=== PATIENT | female | born 1965 | race Caucasian/White ===

== ENCOUNTER 2021-12-28 07:14 | Outpatient (CLI) | payer BC ==
[~2021-12-28] VITALS: Ht 167.6 cm; Wt 58.1 kg
[2021-12-28] MEDS ORDERED: CHOL1LIQ MC (11:08)
[2021-12-28] MEDS ORDERED: MULT-1136 PO (11:08)
[2021-12-28] MEDS ORDERED: TUME1CAP PO (11:08)
[2021-12-28] MEDS ORDERED: [UNRECOGNIZED DRUG - CODE] MC (11:08)
== END 2021-12-28 11:11 | disposition home or self-care (01) ==
LOC: PREOP 07:14
PROVIDERS: ATTEND Internal Medicine
DX: Z01.818 Encounter for other preprocedural examination (principal)

== ENCOUNTER 2022-01-06 07:57 | Day surgery (SDC) | payer BC ==
--- NOTE | 2021-12-27 20:15 | HISTORY AND PHYSICAL ---
DATE OF SERVICE: PANENDOSCOPY HISTORY AND PHYSICAL HISTORY OF PRESENT ILLNESS: The patient is a 56-year-old white female referred by Bennett Wood APRN for consideration for panendoscopy. The patient was due for screening colonoscopy. She is deemed to be of average risk as she is not aware of any family history for colon cancer. For the past several years, she reports intermittent crampy abdominal pain typically followed by diarrhea. She thinks that occasionally she may have had a small amount of red blood, but not often. She believes certain foods like dairy, nuts, soda and alcohol make her abdominal pain worse, but can happen at any time. It is not associated with chills or fever. She reports that she has been doing a lot of throat clearing. She has had some intermittent dysphagia to solids including pills over the past several months. She denies associated weight loss or melena. She has had some intermittent chest discomfort, but is not activity associated more often at rest, and more often at night. She denies any associated epigastric pain or burning. PAST MEDICAL HISTORY: Distant past history of head trauma. She was recently started on Protonix and Carafate. I do not believe she is taking any other prescription medication. 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 Occasional small volume alcohol intake. No past smoking history. PAST SURGICAL HISTORY: Significant for tonsillectomy and adenoidectomy and a D and C. FAMILY HISTORY: She is aware of no family history of GI tract malignancy. REVIEW OF SYSTEMS: CONSTITUTIONAL: Denies night sweats, chills, fever or change in weight. GASTROINTESTINAL: As noted in the HPI. PULMONARY: Denies cough, wheezing or shortness of breath. CARDIOVASCULAR: Does report chest pain; however, it is not activity associated and not associated with diaphoresis or shortness of breath. She has had no syncope or presyncope. PHYSICAL EXAMINATION: GENERAL: Reveals a pleasant white female with a slight speech impediment. VITAL SIGNS: Blood pressure 120/72, weight 128.8 pounds. HEENT: Unremarkable. Sclerae nonicteric. CHEST: Clear to auscultation. CARDIOVASCULAR: Reveals a regular rate and rhythm without murmur, S3 or S4. ABDOMEN: Soft, supple, currently without pain. No mass or organomegaly are noted. EXTREMITIES: Reveal no cyanosis, clubbing or edema. ASSESSMENT AND PLAN: The patient is being set up for screening colonoscopy and diagnostic EGD due to history of dysphagia as well as likely noncardiac chest pain. Prep instructions were given and questions were answered. I thank you for the referral of this pleasant lady. Job ID: [id number] DocumentID: [id number] Dictated Date: 12/22/2021 16:47:00 Oracle Sql Developer Date: 12/22/2021 17:06:39 Dictated By: JOE PRICE MD
[~2022-01-06] VITALS: Ht 168 cm; Wt 58.1 kg
[~2022-01-06 07:57] MED LIST: CHOL1LIQ MC; MULT-1136 PO; TUME1CAP PO; [UNRECOGNIZED DRUG - CODE] MC
[2022-01-06] MEDS ORDERED: LACTATED RINGERS 1,000 ML IV STA (08:06)
--- NOTE | 2022-01-06 08:12 | Pre-Op Note & Conscious Sedat ---
Pre-Operative Progress Note H&P Reviewed The H&P was reviewed, patient examined and no changes noted. Date H&P Reviewed: Jan 06, 2022 Time H&P Reviewed: 08:12 Conscious Sedation Pre-Proced ASA Score 1 For ASA 3 and 4: Consider anesthesia and medical clearance. Also, for patients with a history of failed moderate sedation consider anesthesia. Airway Lungs Heart ASA score ASA 1: a normal healthy patient ASA 2: a patient with a mild systemic disease (mid diabetes, controlled hypertension, obesity ASA 3: a patient with a severe systemic disease that limits activity (angina, COPD, prior Myocardial infarction) ASA 4: a patient with an incapacitating disease that is a constant threat to life (CHF, renal failure) ASA 5: a moribund patient not expected to survive 24 hrs. (ruptured aneurysm) ASA 6: a declared brain- patient whose organs are being harvested. For emergent operations, add the letter E after the classification Mallampati Classification Grade 1 Sedation Plan Analgesia, Amnesia, Plan communicated to team members, Discussed options with patient/fam, Discussed risks with patient/fam The patient is an appropriate candidate to undergo the planned procedure, sedation, and anesthesia. The patient immediately re-assessed prior to indication. JOE PRICE MD Jan 06, 2022 08:12
[2022-01-06] MEDS ORDERED: HURRICAINE EXT TUBE (BENZOCAINE) XX PRN (08:15)
[2022-01-06 08:23] VITALS: BP 132/86
[2022-01-06] MEDS ORDERED: PROPOFOL INJECTION 50 ML IV ONE (09:10)
[2022-01-06] MEDS ORDERED: MIDAZOLAM 2 MG/2 ML (VERSED) VIAL ONE (09:10)
[2022-01-06 09:50] VITALS: BP 96/58
[2022-01-06 09:55] VITALS: BP 97/58
[2022-01-06 10:00] VITALS: BP 102/65
[2022-01-06 10:30] VITALS: BP 132/80
--- NOTE | 2022-01-06 10:36 | Anesthesia-General Post-Op ---
MAC Patient Condition Mental Status/LOC: Same as Preop Cardiovascular: Satisfactory Nausea/Vomiting: Absent Respiratory: Satisfactory Pain: Controlled Complications: Absent Post Op Complications Complications None Follow Up Care/Instructions Patient Instructions None needed. Anesthesiology Discharge Order Discharge Order Patient is doing well, no complaints, stable vital signs, no apparent adverse anesthesia problems. No complications reported per nursing. LAUREN MCFADDEN CRNA Jan 06, 2022 10:36
--- NOTE | 2022-01-06 18:12 | OPERATIVE REPORT ---
DATE OF SERVICE: PANENDOSCOPY SUMMARY INDICATION FOR THE PROCEDURE: EGD was performed for dysphagia and colonoscopy was performed for screening. DESCRIPTION OF PROCEDURE: The patient was placed in the left lateral decubitus position. The endoscope was inserted in the oral cavity and under direct visualization, the esophagus was intubated. Endoscope was passed down the esophagus through the stomach into the second portion of the duodenum. A careful inspection was made as the endoscope was withdrawn. FINDINGS: The posterior pharynx, epiglottis, arytenoid aperture, and true and false vocal folds were unremarkable to visual inspection. In the mid and distal esophagus, there were some striations; however, they were not persistent. A biopsy was obtained from the mid and distal esophagus for evaluation for eosinophilic esophagitis. There was columnar appearing mucosa extending little over a centimeter from the GE junction extending proximally from the GE junction involving about 30% of the circumference. A biopsy was obtained and submitted for evaluation for short segment Napier's. There was no evidence for erosive esophagitis and no evidence for hiatal hernia formation. There was some mild distal fundal erythema present. A biopsy was obtained and submitted for Helicobacter. No other gastric abnormalities were noted. This included retroflexed views of the cardia. The pylorus, pyloric channel, duodenal bulb, and second portion of the duodenum were unremarkable. ASSESSMENT: There was no evidence for erosive esophagitis. Biopsies were obtained as noted above from the mid and distal esophagus to evaluate for eosinophilic esophagitis and also to rule out short segment Napier's as noted above. Mild distal fundal erythema was noted. So, biopsy was obtained and submitted for Helicobacter. We then proceeded with colonoscopy. Prior to undergoing colonoscopy, a digital rectal evaluation was performed. Anal sphincter tone was normal and the perianal reflexes were intact. No abnormalities were noted on digital inspection of the anal canal or distal rectal vault. The colonoscope was then inserted into the rectum and under direct visualization advanced to the cecum. The cecum was identified by identification of the ileocecal valve and cecal strap. Photographic documentation was obtained. Quality of prep was good. FINDINGS: There was no evidence for internal or external hemorrhoids and the rectum was unremarkable. Present in the proximal sigmoid colon was diminutive 2 mm sessile polyp. It was biopsied and ablated with hot forceps. The remainder of the sigmoid colon, descending colon, splenic flexure, transverse colon, hepatic flexure was unremarkable. Present in the proximal ascending colon was a 2 mm polyp that was also ablated with hot forceps with no blood loss. Cecum was unremarkable. ASSESSMENT: Two diminutive polyps, one from the proximal sigmoid and the other from the proximal ascending colon that were biopsied and ablated. This was otherwise normal colonoscopy to the cecum under good prep conditions. As long as there are no surprises on histopathology report, we will advocate repeat screening colonoscopy in 10 years. I thank you for the referral of this pleasant lady. Job ID: [id number] DocumentID: [id number] Dictated Date: 01/06/2022 09:51:59 District Sales Leader Date: 01/06/2022 18:11:59 Dictated By: JOE PRICE MD
== END 2022-01-06 10:40 | disposition home or self-care (01) ==
LOC: ENDO 07:57
PROVIDERS: ATTEND Internal Medicine
DX: Z12.11 Encounter for screening for malignant neoplasm of colon (principal); D12.2 Benign neoplasm of ascending colon; K63.5 Polyp of colon; K29.50 Unspecified chronic gastritis without bleeding; K21.00 Gastro-esophageal reflux disease with esophagitis, without bleeding; K22.70 Barrett's esophagus without dysplasia

== ENCOUNTER 2023-03-07 05:38 | Outpatient (CLI) | payer BC ==
[~2023-03-07] VITALS: Ht 167.7 cm; Wt 56.4 kg
[2023-03-07] MEDS ORDERED: PANT40TA52 PO (09:47)
== END 2023-03-07 09:55 | disposition home or self-care (01) ==
LOC: PREOP 05:38
PROVIDERS: ATTEND Internal Medicine
DX: Z01.818 Encounter for other preprocedural examination (principal)